=== PATIENT | female | born 1950 | race Caucasian/White ===

== ENCOUNTER 2024-01-12 15:52 | Outpatient (AMB) | payer MEDICARE, SELFPAY ==
--- NOTE | 2024-01-12 15:54 | MHC.OFFVIS ---
Intake Vital Signs 01/12/24 15:58 Height 5 ft Weight 112 lb 6 oz BMI 21.9 BP 118/70 Blood Pressure Location Lt brachial Position Sitting Pulse 52 Pulse Source Pulse Oximeter Pulse Oximetry (%) 94 Oxygen Delivery Method Room Air Intake Visit Reasons: Hypertension Hand Candy Molder Required: No Accompanied by: Self / Same As Patient Allergies No Known Allergies [No Known Allergies*] Allergy (Verified 01/12/24 16:00) HPI HPI Comments History of Present Illness Details I had the privilege of seeing Noelle in follow-up of her hypertension and mild CKD. She is in good health. She denies any headache, visual disturbances, chest pain, shortness of breath, proximal nocturnal dyspnea, orthopnea, pedal edema or orthostatic symptoms. She has no history of sleep apnea. Her renal functions have been stable. She does not take any nonsteroidal anti-inflammatories. She is not known to have any low serum potassium, high calcium or uncontrolled thyroid disorders. She maintains good hydration. [facility] Medical History (Updated 01/12/24 @ 16:03 by Charlotte Lloyd MA) CKD (chronic kidney disease) stage 2, GFR 60-89 ml/min Hypertension Surgical History (Updated 01/12/24 @ 16:03 by Charlotte Lloyd MA) History of salpingo-oophorectomy History of hernia repair H/O wrist surgery Family History (Updated 01/12/24 @ 16:04 by Charlotte Lloyd MA) Father Diabetes Heart disease Mother Heart disease Cancer Brother Cancer Diabetes Social History (Updated 01/12/24 @ 16:04 by Charlotte Lloyd MA) Alcohol intake: never Patient Tobacco Use Status: Former Tobacco user Use of substances other than those prescribed or required for medical reasons: No Physical Exam Vital Signs: Last Vital Signs Pulse 52 01/12/24 15:58 BP 118/70 01/12/24 15:58 Pulse Ox 94 01/12/24 15:58 Oxygen Delivery Method Room Air 01/12/24 15:58 BMI result Body Mass Index 21.9 Const General: comfortable and no acute distress Orientation/consciousness: patient oriented x3 HEENT Head: Yes normocephalic Mouth: Normal oral and palatal mucosa present Eyes EOM: EOMs intact bilaterally Neck Neck: Yes supple Resp Auscultation: clear to auscultation bilaterally Cardio Jugular venous distension: no JVD Rate: regular rate GI Palpation (GI): Soft to palpation Auscultation: normal bowel sounds General: Yes no CVA tenderness Back/Spine/Pelvis Back: no CVA tenderness Skin General skin exam: no rashes or lesions noted Neuro General: patient oriented x3 and moves all extremities Extrem General: Yes no pedal edema Assessment & Plan Assessment & Plan (1) CKD (chronic kidney disease) stage 2, GFR 60-89 ml/min: Code(s): N18.2 - Chronic kidney disease, stage 2 (mild) (2) Hypertension: Code(s): I10 - Essential (primary) hypertension Qualifiers: Hypertension type: primary hypertension Qualified Code(s): I10 - Essential (primary) hypertension Plan Noelle has 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 Her renal functions are currently stable. Her blood pressure is at goal. She is not a diabetic. She does not have any low serum potassium, high calcium or uncontrolled thyroid disorders. She avoids nonsteroidal anti-inflammatories. Her brother had ESRD from multiple myeloma. She maintains good hydration. Her blood pressure is at goal. I did not make any medication changes today. Follow-up lab work ordered. Answered all questions. Follow-up appointment given. Orders: Orders Calcium Today I10 - Essential (primary) hypertension, N18.2 - Chronic kidney disease, stage 2 (mild) Creatinine Today I10 - Essential (primary) hypertension, N18.2 - Chronic kidney disease, stage 2 (mild) Complete Blood Count Auto Diff Today I10 - Essential (primary) hypertension, N18.2 - Chronic kidney disease, stage 2 (mild) Parathyroid Hormone Intact Today I10 - Essential (primary) hypertension, N18.2 - Chronic kidney disease, stage 2 (mild) Vitamin D 25-OH Total Today I10 - Essential (primary) hypertension, N18.2 - Chronic kidney disease, stage 2 (mild) Electrolytes Today I10 - Essential (primary) hypertension, N18.2 - Chronic kidney disease, stage 2 (mild) Blood Urea Nitrogen Today I10 - Essential (primary) hypertension, N18.2 - Chronic kidney disease, stage 2 (mild) Immunofixation Pnl, Serum Today I10 - Essential (primary) hypertension, N18.2 - Chronic kidney disease, stage 2 (mild) Protein Creatinine Ratio, Ur Today I10 - Essential (primary) hypertension, N18.2 - Chronic kidney disease, stage 2 (mild) Medications: Refilled amlodipine 5 mg PO DAILY 90 tabs 5RF Coding Level of Care Code Est Pt Level 4 (20093) Diagnoses CKD (chronic kidney disease) stage 2, GFR 60-89 ml/min N18.2 Primary hypertension I10 Hypertension type: primary hypertension
[2024-01-12 15:58] VITALS: BP 118/70; PULSE 52; O2SAT 94; BMI 21.9
== END 2024-01-12 16:27 | disposition home or self-care (01) ==
PROVIDERS: PCP Internal Medicine; Visit Provider Internal Medicine Nephrology
DX: I12.9 Hypertensive chronic kidney disease with stage 1 through stage 4 chronic kidney disease, or unspecified chronic kidney disease (principal); N18.2 Chronic kidney disease, stage 2 (mild)
CPT/HCPCS: 99214

== ENCOUNTER → 2024-01-12 15:52 | Outpatient (BNVA) | payer MEDICARE, SELFPAY | PROVIDERS: PCP Internal Medicine; Visit Provider Internal Medicine Nephrology | DX: I12.9 Hypertensive chronic kidney disease with stage 1 through stage 4 chronic kidney disease, or unspecified chronic kidney disease (principal); N18.2 Chronic kidney disease, stage 2 (mild) | CPT/HCPCS: 99212 ==

== ENCOUNTER 2025-01-10 08:10 | Outpatient (REF) | payer MEDICARE, SELFPAY ==
[2025-01-10 08:26] LABS: MANUAL DIFF FLAG NO
--- OUTSIDE RECORDS SUMMARY | 2025-01-10 08:26 | XMS_ITS | Clinical Summary ---
Author Organization [facility] Address [address] [place] [address] Care Team Providers Care Vending Machine Refiller Name Role Phone Fabricio Cruz MD Primary Care Provider [phone] Allergies Active Allergy Reactions Criticality Noted Date Comments Amoxicillin-Pot Clavulanate Nausea Only 025 Medications alendronate (FOSAMAX) 70 mg tablet Take 1 tablet (70 mg total) by mouth once a week. 1 Active cholecalciferol (VITAMIN D-3) 25 mcg (1,000 unit) tablet Take 1 tablet (1,000 Units total) by mouth daily. Active LORazepam (ATIVAN) 0.5 mg tablet Take 1 tablet (0.5 mg total) by mouth every night at bedtime as needed. Active rosuvastatin 10 mg capsule, sprinkle Take by mouth. Active terbinafine (LamISIL) 250 mg tablet Take 1 tablet (250 mg total) by mouth daily. Active calcium carbonate (CALCIUM 500 ORAL) Take by mouth daily. Active escitalopram (LEXAPRO) 10 mg tablet Take 1 tablet (10 mg total) by mouth 1 (one) time each day. 4 Active buPROPion XL (WELLBUTRIN XL) 150 mg 24 hr tablet Take 1 tablet (150 mg total) by mouth 1 (one) time each day in the morning. 4 Active amLODIPine (NORVASC) 2.5 mg tablet Take 1 tablet (2.5 mg total) by mouth 1 (one) time each day. 5 Active levothyroxine (SYNTHROID, LEVOTHROID) 50 mcg tablet Take 1 tablet (50 mcg total) by mouth 1 (one) time each day. 5 Active amLODIPine (NORVASC) 5 mg tablet Take 1 tablet (5 mg total) by mouth daily. 12/24/19 25 Discontinu ed(Dose adjustment ) escitalopram (LEXAPRO) 20 mg tablet Take 1 tablet (20 mg total) by mouth daily. 12/24/19 25 Discontinu ed(Dose adjustment ) levothyroxine (SYNTHROID, LEVOTHROID) 75 mcg tablet Take 1 tablet (75 mcg total) by mouth every morning with breakfast. 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 Encounters Date Type Department Care Team Description 01/02/2025 Telephone Gastroenterology - [address] [phone] Danae Acosta [place] 12/30/2024 9:51 AM EDT Anesthesia Event [facility] Endoscopy [address] [place] [address] Lupillo Davila MD 12/30/2024 8:26 AM EDT - 12/30/2024 11:59 PM EDT Hospital Encounter [facility] Endoscopy [address] [place] [address] Marybel Aden MD Weiss, Ashley, CRNA Colon cancer screening Discharge Disposition: Home or Self Care 10/31/2024 Telephone Gastroenterology - [address] [phone] Marybel Aden MD from Last 3 Months Immunizations Name Administration Dates Next Due [employer] SARS-CoV-2 COVID -19, vector-nr, rS-Ad26, preservative free 12/15/2020 Surgical History Surgery Date Site/Laterality Comments OOPHORECTOMY PROCEDURE:OOPHORECTOMY COLONOSCOPY PROCEDURE:COLONOSCOPY OTHER SURGICAL HISTORY PROCEDURE:DIAPHRAGMATIC HERNIA REPAIR Medical History Medical History Date Comments Bradycardia DX:Bradycardia Disease of thyroid gland DX:Dise ase of thyroid gland Depression DX:Depression Colon cancer (CMS/HCC) DX:Colon cancer (HCC);COMMENT:at 68 - had surgery (polyp) Ovarian cancer (CMS/HCC) DX:Ovar stephan cancer (HCC);COMMENT:Dr Beyer ( surgery only ) - follows Dr Mac (no XRT or chemo) Family History Medical History Relation Name Comments Multiple myeloma Brother 1 Heart attack Father Skin cancer Father Heart attack Mother Lung cancer Mother Diabetes Son Relation Name Status Comments Brother 1 Alive diagnosed at 51 yo Brother 2 Alive Father Mother Son Diabetes at age 49 Social History Tobacco Use Types Packs/Day Years Used Date Smoking Tobacco: Former Cigarettes Q uit: 10/05/1990 Smokeless Tobacco: Never Alcohol Use Standard Drinks/Week Comments No 0 (1 standard drink = 0.6 oz pur e alcohol) Interpersonal Safety Answer Date Record ed Physical Abuse 12/30/2024 Verbal Abuse 12/30/2024 Comments No Sex and Gender Information Value Date Recorded Sex Assigned at Female 12/29/2024 11:28 AM EDT Legal Sex Female 4:43 PM EST Gender Identity Female 12/29/2024 11:28 AM EDT Sexual Orientation Straight 12/29/2024 11 :28 AM EDT Obstetrics History Last Filed Vital Signs Vital Sign Reading Time Taken Comments Blood Pressure 116/72 12/30/2024 10:34 AM EDT Pulse 51 12/30/2024 10:34 AM EDT Temperature 36.5 ??C (97.7 ??F) 12/30/2024 10:14 AM E DT Respiratory Rate 17 12/30/2024 10:34 AM EDT Oxygen Saturation 98% 12/30/2024 10:34 AM EDT Inhaled Oxygen Concentration - - Weight 49.9 kg (110 lb) 12/30/2024 9:36 AM EDT Height 154.9 cm (5' 1 ) 12/30/2024 9:36 AM EDT Body Mass Index 20.78 12/30/2024 9:36 AM EDT Plan of Treatment Upcoming Encounters Date Type Department Care Team (Late st Contact Info) Description 01/16/2025 3:45 PM EDT Office Visit [facility] Hematology Oncology [address] [place] [phone] Camden Rodriges MD [address] [place] [address] Health Maintenance Due Date Last Done Comments Breast Cancer Screening 1950 DTaP,Tdap,and Td Vaccines (1 - Tdap) 1970 Zoster Vaccines (1 of 2) 1970 Pneumococcal Vaccine: 50+ Years (2 of 2 - PPSV23) 10/20/2016 08/25/2016 Depression Screening 09/13/2022 Hepatitis C Screening 09/13/2022 Medicare Annual Wellness Visit 09/13/2022 Social Influencers of Health Screening 09/13/2022 COVID-19 Vaccine ( season) 2024 08/09/2022, 08/10/2021, 12/15/2020 Hypertension/CHF/CAD Annual BMP Blood Test 12/30/2024 Falls Risk Assessment 12/30/2025 12/30/2024 RSV Immunization Adult Patients (1 - 1-dose 75+ series) 2026 Cholesterol Screening (Lipid Panel) 07/30/2027 07/30/2022, 07/30/2022, 07/30/2002 Osteoporosis Screening (Bone Density Screening) 08/01/2034 08/01/2024, 08/04/2022, 07/09/2020, Additional history exists Colorectal Cancer Screening: Colonoscopy 12/30/2034 12/30/2024, 11/01/2024 Influenza Vaccine Completed 07/20/2024, , 07/11/2022, Additional history exists HIB Vaccines Aged Out No longer eligi ble based on patient's age to complete this topic HPV Vaccines Aged Out No longer eligi ble based on patient's age to complete this topic Hepatitis A Vaccines Aged Out No long er eligible based on patient's age to complete this topic Hepatitis B Vaccines Aged Out No long er eligible based on patient's age to complete this topic IPV Vaccines Aged Out No longer eligi ble based on patient's age to complete this topic MMR Vaccines Aged Out No longer eligi ble based on patient's age to complete this topic Meningococcal ACWY Vaccine Aged Out N o longer eligible based on patient's age to complete this topic Meningococcal B Vaccine Aged Out No l onger eligible based on patient's age to complete this topic RSV Immunization Patients Under 20 months Aged Out No longer eligible based on patient's age to complete this topic Varicella Vaccines Aged Out No longer eligible based on patient's age to complete this topic Procedures Procedure Name Priority Date/Time Associated Diagnosis Comments COLONOSCOPY Routine 12/30/2024 10:13 AM EDT Colon cancer screening TISSUE EXAM Routine 12/30/2024 10:07 AM EDT Colon cancer screening COLONOSCOPY Routine 11/01/2024 2:52 PM EST [facility] DEXA AXIAL SKELETON Routine 08/01/2024 8:26 AM EDT Other specified disorders of bone density and structure, other site LIPID PANEL Routine 07/30/2022 from Last 3 Months or Most Recently Relevant to Health Maintenance Results * COLONOSCOPY Anesthesia - MAC; [facility] ENDOSCOPY (12/30/2024 10:13 AM EDT) Only the most recent of2 resultswithin the time period is included. Anatomical Region Laterality Modality Other 12/30/2024 9:54 AM EDT Impressions 12/30/2024 10:14 AM EDT - The examined portion of the ileum was normal. ? - One 2 mm polyp in the transverse colon, removed with ? a cold snare. Resected and retrieved. ? - Internal hemorrhoids. Recommendation: ?- Await pathology results. ? - Repeat colonoscopy for surveillance based on ? pathology results. Narrative 12/30/2024 10:14 AM EDT [facility] GI Patient Name: Monica Pack Procedure Date: 12/30/2024 9:54 AM Date of : 1950 Age: 74 Gender: Female Note Status: Finalized Attending MD: Marybel Aden MD, Procedure Date No Time: 12/30/2024 Procedure: ? Colonoscopy Indications: ? High risk colon cancer surveillance: Personal history ? of colon cancer Providers: ? Marybel Aden MD Referring MD: ?Fabricio Cruz MD Medicines: ? Propofol per Anesthesia Complications: ? No immediate complications. Estimated Blood Loss: ? Estimated blood loss: none. Procedure: ? Pre-Anesthesia Assessment: ? - ASA Grade Assessment: II - A patient with mild ? systemic disease. ? After I obtained informed consent, the scope was ? passed under direct vision. Throughout the procedure, ? the patient's blood pressure, pulse, and oxygen ? saturations were monitored continuously.The Olympus ? Pediatric Colonoscope was introduced through the anus ? and advanced to the terminal ileum. The colonoscopy ? was performed without difficulty. The patient ? tolerated the procedure well. The quality of the bowel ? preparation was adequate. Findings: ?The perianal and digital rectal examinations were ? normal. ? The terminal ileum appeared normal. ? A 2 mm polyp was found in the transverse colon. The ? polyp was sessile. The polyp was removed with a cold ? snare. Resection and retrieval were complete. ? Internal hemorrhoids were found during retroflexion. ? The hemorrhoids were Grade II (internal hemorrhoids ? that prolapse but reduce spontaneously). Procedure Code(s): ? --- Professional --- ? 65271, Colonoscopy, flexible; with removal of ? tumor(s), polyp(s), or other lesion(s) by snare ? technique Diagnosis Code(s): ? --- Professional --- ? 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 D12.3, Benign neoplasm of transverse colon (hepatic ? flexure or splenic flexure) CPT copyright 2020 [employer]. All rights reserved. The codes documented in this report are preliminary and upon fire suppression captain review may be revised to meet current compliance requirements. Marybel Aden MD 12/30/2024 10:14:42 AM This report has been signed electronically.Marybel Aden MD Number of Addenda: 0 Note Initiated On: 12/30/2024 9:54 AM Scope In: Scope Out: ? Endoscopy Department at [facility] - [address] [place] [address], ? [place] [address] Procedure Note Marybel Aden MD - 12/30/2024 [facility] GI Patient Name: Monica Pack Procedure Date: 12/30/2024 9:54 AM Date of : 1950 Age: 74 Gender: Female Note Status: Finalized Attending MD: Marybel Aden MD, Procedure Date No Time: 12/30/2024 Procedure: Colonoscopy Indications: High risk colon cancer surveillance: Personalhistory of colon cancer Providers: Marybel Aden MD Referring MD: Fabricio Cruz MD Medicines: Propofol per Anesthesia Complications: No immediate complications. Estimated Blood Loss: Estimated blood loss: none. Procedure: Pre-Anesthesia Assessment: - ASA Grade Assessment: II - A patient with mild systemic disease. After I obtained informed consent, the scope was passed under direct vision. Throughout theprocedure, the patient's blood pressure, pulse, and oxygen saturations were monitored continuously.The Olympus Pediatric Colonoscope was introduced through theanus and advanced to the terminal ileum. The colonoscopy was performed without difficulty. The patient tolerated the procedure well. The quality of thebowel preparation was adequate. Findings: The perianal and digital rectal examinations were normal. The terminal ileum appeared normal. A 2 mm polyp was found in the transverse colon. The polyp was sessile. The polyp was removed with acold snare. Resection and retrieval were complete. Internal hemorrhoids were found duringretroflexion. The hemorrhoids were Grade II (internal hemorrhoids that prolapse but reduce spontaneously). Procedure Code(s): --- Professional --- 49206, Colonoscopy, flexible; with removal of tumor(s), polyp(s), or other lesion(s) by snare technique Diagnosis Code(s): --- Professional --- Z85.038, Personal history of other malignantneoplasm of large intestine D12.3, Benign neoplasm of transverse colon (hepatic flexure or splenic flexure) CPT copyright 2020 [employer]. All rights reserved. The codes documented in this report are preliminary and upon fire suppression captain reviewmay be revised to meet current compliance requirements. Marybel Aden MD 12/30/2024 10:14:42 AM This report has been signed electronically.Marybel Aden MD Number of Addenda: 0 Note Initiated On: 12/30/2024 9:54 AM Scope In: Scope Out: Endoscopy Department at [facility] - [address] [place] [phone] IMPRESSION: - The examined portion of the ileum was normal. - One 2 mm polyp in the transverse colon, removedwith a cold snare. Resected and retrieved. - Internal hemorrhoids. Recommendation: - Await pathology results. - Repeat colonoscopy for surveillance based on pathology results. us Marybel Aden MD GI~PROCEDURE ORDERABLES Final Result * Tissue exam (12/30/2024 10:07 AM EDT) Final Diagnosis Transverse Colon, polyp: Tubular adenoma. 01/02/2025 11:05 AM EDT [facility] Gross Description A. Large Intestine, Transverse Colon, polyp: Labeled transvers colon . Received in formalin, is an approximately 0.5 cm in greatest diameter soft to rubbery, pickard-pink tissue fragment, which is inked green at the base, wrapped in paper and submitted in toto in one cassette, one piece, multiple levels. dvb/DG 01/02/2025 11:[address] [facility] Disclaimer Unless otherwise specified, all tissue is 10% NB formalin fixed and paraffin embedded. 01/02/2025 11:[address] [facility] Tissue Transverse colon structure / Unknown 12/30/2024 10:07 AM EDT 12/30/2024 12:42 PM EDT us Marybel Aden MD LAB PATHOLOGY ORDERABLES Final Result [facility] [address] [place] [address], * [facility] DEXA AXIAL SKELETON (08/01/2024 8:26 AM EDT) Anatomical Region Laterality Modality Mammography 08/01/2024 7:26 AM EDT Narrative 08/01/2024 8:26 AM EDT [facility] Diagnostic Imaging Department [address] [place] [address] Patient: ??MONICA PACK ?/Age/Sex: 1950 - Unit#: ??[id number] ? Location/Status: ??SPDIMAM/REG CLI ? Mnemonic/Ordering Site: ??MAMDEXAAX/SPMAM Ordering Physician: ??JUS GOODEN MD [place] Dexa Axial Skeleton - 08/01/24801 Report Status:Signed HISTORY: ??The patient is a 74-year-old postmenopausal female with clinical concern for metabolic bone disease. FINDINGS: ??Dual energy x-ray absorptiometry of the lumbar spine and femurs is performed. The mean bone mineral density at L1-L4 is 0.925 gm/cm2 which is 78% of that of young normals and 100% of that of age matched controls. This yields a T-score of -2.1 and a Z-score of 0.0 which is diagnostic of osteopenia. The mean bone mineral density of the femurs bilaterally is 0.782 gm/cm2 which is 78% of that of young normals and 102% of that of age matched controls. ??This yields a T-score of -1.8 and a Z-score of 0.1 which is diagnostic of osteopenia. The T-score of the right femoral neck is -2.1 and that of the left femoral neck is -2.2 which is diagnostic of osteopenia. IMPRESSION: 1. Osteopenia. 2. FRAX analysis yields a 10-year probability of major osteoporotic fracture of 19.4% and a 10-year probability of hip fracture of 4.7%. Code 41992 Dictating Physician: ??CIERRA MARTÍNEZ MD Electronically Signed by: ??CIERRA MARTÍNEZ MD Dic Date/Time: ??08/01/24824 Sign date/Time: ??08/01/24825 Procedure Note Cierra Martínez MD - 08/06/2024 [facility] Diagnostic Imaging Department [address] [place] [address] Patient: MONICA PACK /Age/Sex: 1950 - 74 - F Unit#: [id number] Location/Status: SPDIMAM/REG CLI [facility] Ordering Physician: JUS GOODEN MD [facility] Dexa Axial Skeleton - 08/01/24801 Report Status:Signed HISTORY: The patient is a 74-year-old postmenopausal female withclinical concern for metabolic bone disease. FINDINGS: Dual energy x-ray absorptiometry of the lumbar spine and femursis performed. The mean bone mineral density at L1-L4 is 0.925 gm/cm2 which is78% of that of young normals and 100% of that of age matched controls. Thisyields a T-score of -2.1 and a Z-score of 0.0 which is diagnostic of osteopenia. The mean bone mineral density of the femurs bilaterally is 0.782 gm/aq2fqvsh is 78% of that of young normals and 102% of that of age matched controls.This yields a T-score of -1.8 and a Z-score of 0.1 which is diagnostic ofosteopenia. The T-score of the right femoral neck is -2.1 and that of the left femoralneck is -2.2 which is diagnostic of osteopenia. IMPRESSION: 1. Osteopenia. 2. FRAX analysis yields a 10-year probability of major osteoporoticfracture of 19.4% and a 10-year probability of hip fracture of 4.7%. Code 11519 Dictating Physician: CIERRA MARTÍNEZ MD Electronically Signed by: CIERRA MARTÍNEZ MD Dic Date/Time: 08/01/24824 Sign date/Time: 08/01/24825 us Jus Gooden MD IMG BI PROCEDURES Fi nal Result * Lipid panel (07/30/2022) LDL/HDL Ratio 0 Comment:no interpretation Triglycerides 0 mg/dL Comment:no interpretation Cholesterol 0 mg/dL Comment:no interpretation HDL 0 mg/dL Comment:no interpretation Blood Venous blood specimen / Unknown us Historical Provider LAB BLOOD ORDERABLES Shayy l Result from Last 3 Months or Most Recently Relevant to Health Maintenance Insurance MEDICARE [facility] Advance Directives Documents on File Type Date Recorded Patient Cleaning Specialist Expl anation Health Care Decision (hx) 08/10/2024 3:59 PM Health Care Decision (hx) 07/20/2024 1:35 PM Health Care Decision (hx) 07/20/2024 11:46 AM Health Care Decision (hx) 07/20/2024 11:46 AM Care Teams Vending Machine Refiller Relationship Specialty Start Date End Date Fabricio Cruz MD [address] [place] [address] PCP - General Internal Medicine 12/29/24
--- OUTSIDE RECORDS SUMMARY | 2025-01-10 08:26 | XMS_ITS | Continuity of Care Document ---
Author Organization [facility] [address] [place] [address] Phone [phone] Care Team Providers Care Purchasing/Receiving Name Role Phone Fabricio Cruz M.D. Care Team Information Recei luann [phone] Problems Active Problems Provider Date Hypothyroidism Mariana castillo M.D. Onset: 10/15/2022 Multinodular goiter Mariana castillo M.D. Onset: 10/15/2022 Osteopenia Mariana castillo M.D. Onset: 10/15/2022 Hypercholesterolemia Mariana high M.D. Onset: 10/15/2022 Depressive disorder Mariana castillo M.D. Onset: 10/15/2022 Monoclonal gammopathy of unc ertain significance Mariana Fournier M.D. Onset: 02/25/2023 Benign paroxysmal positional vertigo Lupe Fournier M.D. Onset: 02/25/2023 Carcinoma of colon Mariana castillo M.D. Onset: 02/25/2023 Kidney stone Mraiana castillo M.D. Onset: 02/25/2023 Bradycardia Mariana castillo M.D. Onset: 02/25/2023 Neoplasm of ovary Mariana castillo M.D. Onset: 02/25/2023 Social History Type Date Description Comments Sex Unknown Marital Status Legal Status: Lives With Alone Occupation paraprofessional-school Work Status Full-Time Employment Tobacco Use Start: Unknown End: Unknown Quit 1990 Smoking Status Reviewed: 02/25/23 Quit 1991 ETOH Use Denies alcohol use Allergies and adverse reactions Description No Known Drug Allergies Medications Active Medications SIG Qnty Indications Order ing Provider Date Amlodipine Besylate2.5mg Tablets Take One Tablet By Mouth Every Day. Mariana Fournier M.D. 03/09/2024 Levothyroxine [id number] Tablets Take One Tablet By Mouth Every Day 90tabs Mariana Fournier M.D. 02/28/2023 Rosuvastatin Lnlrjtv93al Tablets Take 1 Tablet By Mouth Once Daily Fabricio Cruz M.D. Alendronate Ygautl01sr Tablets Take 1 Tablet By Mouth Once Weekly Mariana Fournier M.D. Lorazepam0.5mg Tablets Take 1 Tablet By Mouth Once Daily as Needed For Anxiety Unknown Calcium 500/Vitamin D500-3.125mg-mcg Tablets 1 by mouth twice a day Mariana Fournier M.D. Vitamin S466dqh (1000 Ut) Capsules 1 by mouth every day 100caps Mariana Fournier M.D. Bupropion Hydrochloride ER (XL)150mg Tablets ER 24HR Take One Tablet By Mouth Every Morning Unknown Escitalopram Yqmosny33ih Tablets Take One Tablet By Mouth Every Day Unknown Vital Signs Date Vital Result Comment 09/14/2024 8:13am BP Systolic 110 mmHg BP Diastolic 62 mmHg Heart Rate 64 /min Height 60 inches 5'0 Weight 111.38 lb BMI (Body Mass Index) 21.7 kg/m2 Results Test Acquired Date Facility Test Result H/L Range N ote TSH With Reflex To FT4 09/04/2023 [facility] TSH With Reflex To FT4 1.81 uIU/mL (0.4-4.2) 25Oh Vitamin D 09/04/2023 [facility] 25Oh Vitamin D 62.3 NG/ML High (20-50) TSH With Reflex To FT4 05/04/2023 [facility] TSH With Reflex To FT4 2.78 uIU/mL (0.4-4.2) TSH With Reflex To FT4 02/28/2023 [facility] TSH With Reflex To FT4 <pending> TSH With Reflex To FT4 02/25/2023 [facility] TSH With Reflex To FT4 0.32 uIU/mL Low (0.4-4.2) Free T4 02/25/2023 [facility] Free T4 1.76 ng/dL (0.70-1.80 ) Procedures Date Code Description Status 09/04/2023 75281 Collection Of Venous Blood B y Venipuncture Completed 02/25/2023 85703 Collection Of Venous Blood B y Venipuncture Completed Medical Devices Description No Information Available Encounters Type Date Location Provider Dx Diagnosis Office Visit 09/14/2024 8:15a Main Office Mariana Fournier M.D. M81.0 Age-related osteoporosis w/o current pathological fracture E04.2 Nontoxic multinodula r goiter E03.9 Hypothyroidism, unsp ecified Assessments Date Code Description Provider 09/14/2024 M81.0 Age-related oste oporosis without current pathological fracture Mariana Fournier M.D. 09/14/2024 E04.2 Nontoxic multinodular goiter Mariana Fournier M.D. 09/14/2024 E03.9 Hypothyroidism, unspecified Mariana Fournier M.D. Plan of Treatment Future Appointment(s):* 03/15/2025 8:30 am - Mariana Fournier M.D. at Main Office 03/09/2024 - Mariana Fournier M.D.* M81.0 Age-related osteoporosis without current pathological fracture * E04.2 Nontoxic multinodular goiter * E03.9 Hypothyroidism, unspecified * * New Xrays:* Dexa Bone Density Study Axial Skeleton, Ordered: 03/09/24 Functional Status Description No Information Available Mental Status Description No Information Available Referrals Description No Information Available
--- OUTSIDE RECORDS SUMMARY | 2025-01-10 08:26 | XMS_ITS | Clinical Summary ---
Author Organization [facility] Address [address] [place] [address] Care Team Providers Care Client Resolution Specialist Name Role Phone Fabricio Cruz MD Primary Care Provider Allergies No known active allergies Medications Medication Sig Dispensed Refills Start Date End Date Status escitalopram (LEXAPRO) 20 MG tablet Take 1 tablet (20 mg total) by mouth daily. 0 Active levothyroxine (SYNTHROID, LEVOXYL) tablet 75 mcgIndications:MON-FRI ONLY Take 1 tablet (75 mcg total) by mouth every morning with breakfast. 0 Active LORazepam (ATIVAN) 0.5 MG tablet Take 1 tablet (0.5 mg total) by mouth every night at bedtime as needed. 0 Active vitamin D3 (VITAMIN D3) 25 MCG (1000 UT) tablet Take 1 tablet (1,000 Units total) by mouth daily. 0 Active Calcium Carbonate (CALCIUM 500 PO) Take by mouth daily. 0 Active alendronate (FOSAMAX) tablet 70 mg Take 1 tablet (70 mg total) by mouth once a week. 0 03/29/2021 Active Rosuvastatin Calcium 10 MG CPSP Take by mouth. 0 Active terbinafine (LamiSIL) 250 MG tablet Take 1 tablet (250 mg total) by mouth daily. 0 Active amLODIPine (NORVASC) tablet 5 mg Take 1 tablet (5 mg total) by mouth daily. 0 Active Active Problems Problem Noted Date Diagnosed Date Night sweats 03/31/2022 Weight loss 03/31/2022 MGUS (monoclonal gammopathy of unknown significa nce) 04/23/2020 High vitamin D level 04/23/2020 Anxiety 04/23/2020 Family history of multiple myeloma 04/23/2020 Family History Medical History Relation Name Comments Multiple myeloma Brother 1 Heart attack Father Skin cancer Father Heart attack Mother Lung cancer Mother Diabetes Son Relation Name Status Comments Brother 1 Alive diagnosed at 51 yo Brother 2 Alive Father Mother Son Diabetes at age 49 Social History Tobacco Use Types Packs/Day Years Used Date Smoking Tobacco: Former Cigarettes 1 25 Q uit: 1990 Smokeless Tobacco: Never Alcohol Use Standard Drinks/Week Comments No 0 (1 standard drink = 0.6 oz pur e alcohol) Sex and Gender Information Value Date Recorded Sex Assigned at Not on file Gender Identity Not on file Sexual Orientation Not on file Job Start Date Occupation Industry Not on file Not on file Not on file Last Filed Vital Signs Vital Sign Reading Time Taken Comments Blood Pressure 135/54 01/14/2023 4:03 PM EDT Pulse 50 01/14/2023 4:03 PM EDT Temperature 37.1 ??C (98.8 ??F) 01/14/2023 4:03 PM ED T Respiratory Rate - - Oxygen Saturation 96% 01/14/2023 4:03 PM EDT Inhaled Oxygen Concentration - - Weight 54.3 kg (119 lb 9.6 oz) 01/14/2023 4:03 P M EDT Height 152.4 cm (5') 01/14/2023 4:03 PM EDT Body Mass Index 23.36 01/14/2023 4:03 PM EDT Plan of Treatment Health Maintenance Due Date Last Done Comments Hepatitis C Screening 1950 Pneumococcal Vaccine (1 of 2 - PCV) 1957 Depression Screening 1963 Preventative Health Evaluation 1969 DTap / Tdap / Td (1 - Tdap) 1970 Shingrix-Zoster Vaccine (1 of 2) 1970 Colon Cancer Screening (Colonoscopy) 02/03/1996 Breast Cancer Screening (Mammogram) 2001 Fall Risk Assessment 02/03/2016 Osteoporosis Screening (DEXA Scan) 02/03/2016 COVID-19 Vaccine (2 - Jansse n risk series) 01/12/2021 12/15/2020 Influenza Vaccine (#1) 2024 07/11/2022 RSV Adult > 60+ Yrs or Pregn ant (1 - 1-dose 75+ series) 2026 Hepatitis B Vaccines Aged Out No long er eligible based on patient's age to complete this topic RSV Ped < 20 months Aged Out No longe r eligible based on patient's age to complete this topic Care Teams Client Resolution Specialist Relationship Specialty Start Date End Date Fabricio Cruz MD [address] [place] [address] PCP - General Internal Medicine 03/26/20
--- OUTSIDE RECORDS SUMMARY | 2025-01-10 08:26 | XMS_ITS | Clinical Summary ---
Author Organization [facility] Address [address] [address] Phone Care Team Providers Care Loading Machine Operator Name Role Phone Fabricio Cruz MD Primary Care Provider Allergies No known active allergies Medications alendronate (FOSAMAX) 70 MG tablet Take 1 tablet by mouth 1 (one) time per week 06/06/2021 Active escitalopram (LEXAPRO) 20 MG tablet Take 20 mg by mouth 1 (one) time each day Active levothyroxine (SYNTHROID, LEVOTHROID) 75 MCG tablet Take 75 mcg by mouth 1 (one) time each day Active cholecalciferol (VITAMIN D-3) 25 MCG (1000 UT) tablet Take 1,000 Units by mouth 1 (one) time each day Active LORazepam (ATIVAN) 0.5 MG tablet Take 0.5 mg by mouth if needed for anxiety Active rosuvastatin (CRESTOR) 10 MG tablet Take 10 mg by mouth 1 (one) time each day 08/13/2022 Active amLODIPine (NORVASC) 5 MG tablet Take 1 tablet (5 mg total) by mouth 1 (one) time each day 90 tablet 3 10/30/2022 Active terbinafine (LamISIL) 250 MG tablet Take 1 tablet by mouth 1 (one) time each day 01/03/2023 Active calcium carbonate (TUMS) 500 MG chewable tablet Chew 1 tablet 1 (one) time each day Active Active Problems Problem Noted Date Diagnosed Date Hypertension 10/30/2022 Hypercholesterolemia 10/15/2022 Non-toxic multinodular goiter 10/15/2022 Osteopenia 10/15/2022 Night sweats 03/31/2022 Weight loss 03/31/2022 Essential (primary) hypertension 07/09/2021 Labile hypertension due to being in a clinical e nvironment 07/09/2021 Resolved Problems Problem Noted Date Diagnosed Date Resolved Date Depressive disorder 10/31/2021 10/31/19 22 Hypothyroidism 10/31/2021 10/31/2021 Malignant neoplasm of colon 10/31/2021 10/31/2021 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 10/31/2021 10/31/2021 Closed Doll's fracture 07/09/202102/2021 Anxiety 04/23/2020 07/09/2021 Family history of multiple myeloma 04/23/2020 07/09/2021 Hypervitaminosis D 04/23/2020 Monoclonal gammopathy of unc ertain significance 04/23/2020 07/09/2021 Immunizations Name Administration Dates Next Due Fadumo SARS-COV-2 12/15/2020 Family History Medical History Relation Comments Cancer Brother 1 Diabetes Brother 1 Heart disease Brother 2 Diabetes Father Heart disease Father Dementia Maternal Grandmother Cancer Mother Heart disease Mother Hypertension Mother Diabetes Paternal Grandfather Relation Status Comments Brother 1 Brother 2 Father Maternal Grandmother Mother Paternal Grandfather Social History Tobacco Use Types Packs/Day Years Used Date Smoking Tobacco: Former Cigarettes 1 25 0 10/05/1966 - 10/05/1990 Smokeless Tobacco: Never Alcohol Use Standard Drinks/Week Comments Never 0 (1 standard drink = 0.6 oz pur e alcohol) Comments Unknown Sex and Gender Information Value Date Recorded Sex Assigned at Not on file Legal Sex Female 2:04 PM EDT Gender Identity Not on file Sexual Orientation Not on file Last Filed Vital Signs Vital Sign Reading Time Taken Comments Blood Pressure 120/80 01/13/2023 2:48 PM EDT Pulse 50 01/13/2023 2:48 PM EDT Temperature - - Respiratory Rate - - Oxygen Saturation 97% 10/31/2021 4:22 PM EST Inhaled Oxygen Concentration - - Weight 54.2 kg (119 lb 6.4 oz) 01/13/2023 2:48 P M EDT Height - - Body Mass Index - - Plan of Treatment Health Maintenance Due Date Last Done Comments Breast Cancer Screening 1950 Pneumococcal Vaccine: 65+ Ye ars (1 of 2 - PCV) 1957 Colorectal Cancer Screening: Annual FOBT 02/03/2000 Colorectal Cancer Screening: Colonoscopy 02/03/2000 Colorectal Cancer Screening: Sigmoidoscopy 02/03/2000 Influenza Vaccine (Season Ended) 2025 Hepatitis B Vaccine Aged Out No longe r eligible based on patient's age to complete this topic Insurance MEDICARE [facility] MEDICARE [facility] Care Teams Loading Machine Operator Relationship Specialty Start Date End Date Fabricio Cruz MD [address] [place] [address] PCP - General Internal Medicine 03/27/21
[2025-01-10 09:03] LABS: Eosinophils Absolute Auto 0.1 X10*3/uL (0.0-0.4); Eosinophils Percent Auto 2.6 % (0-4); Hematocrit 40.9 % (37.0-47.0); Hemoglobin 13.4 g/dl (12.0-16.0); Imm Gran Abs Auto 0.01 X10*3/uL (0.00-0.03); Imm Gran Pct Auto 0.3 % (0.0-0.4); Lymphocytes Absolute Auto 1.1 X10*3/uL (1.2-4.9); Lymphocytes Percent Auto 27.8 % (20-40); Mean Corpuscular HGB Conc 32.8 g/dl (31.0-35.0); Mean Corpuscular Hemoglobin 29.8 pg (27.0-33.0); Mean Corpuscular Volume 91.1 fL (80.0-98.0); Mean Platelet Volume 9.1 fL (9.4-12.3); Monocytes Absolute Auto 0.3 X10*3/uL (0.1-1.2); Monocytes Percent Auto 8.1 % (2-11); Neutrophils Absolute Auto 2.3 x10*3/uL (2.0-8.3); Neutrophils Percent Auto 60.2 % (45-73); Platelet Count 163 X10*3/uL (160-400); Red Blood Count 4.49 X10*6/uL (4.20-5.50); White Blood Count 3.8 X10*3/uL (4.8-10.8)
[2025-01-10 09:53] LABS: Creatinine Urine 139.65 mg/dL; Protein/Creatinine Ratio, Ur 0.06 (<0.2); Total Protein Urine Random 9 mg/dL (<12)
[2025-01-10 10:03] LABS: Anion Gap 10 (12-20); Blood Urea Nitrogen 16 mg/dL (9-16); Calcium 9.2 mg/dL (8.4-10.2); Carbon Dioxide 26 mmol/L (22-29); Chloride 111 mmol/L (96-108); Estimated Glomerular Filt Rate 56; Potassium 3.9 mmol/L (3.3-5.1); Sodium 143 mmol/L (135-145)
[2025-01-10 10:12] LABS: Vitamin D 25-OH Total 55.7 ng/mL (>30)
[2025-01-10 10:41] LABS: Parathyroid Hormone Intact 110.5 pg/mL (8.7-77.1)
[2025-01-11 14:49] LABS: IgA 120 mg/dL (70-320); IgG 751 mg/dL (600-1540); IgM 31 mg/dL (50-300)
== END 2025-01-10 08:11 | disposition home or self-care (01) ==
LOC: HO.LAB 08:10
PROVIDERS: PCP Internal Medicine; Visit Provider Internal Medicine Nephrology
DX: I10 Essential (primary) hypertension (principal); N18.2 Chronic kidney disease, stage 2 (mild)
CPT/HCPCS: 36415; 80051; 82306; 82310; 82565; 82570; 82784; 83970; 84156; 84520; 85025; 86334

== ENCOUNTER 2025-01-11 15:20 | Outpatient (AMB) | payer MEDICARE, SELFPAY ==
--- NOTE | 2025-01-11 15:28 | HO.NEPHOV ---
Vital Signs 01/11/25 15:34 Height 5 ft Weight 115 lb 8 oz BMI 22.6 BP 110/60 Blood Pressure Location Rt brachial Position Sitting Pulse 54 Pulse Source Pulse Oximeter Pulse Oximetry (%) 94 Oxygen Delivery Method Room Air Intake Visit Reasons: 1 Year F/U-Conf Packing Line Worker Required: No Accompanied by: Self / Same As Patient Allergies Amoxicillin and Clavulanate Adverse Reaction (Uncoded 01/11/25 15:34) Nausea HPI Comments Details: Noelle was seen in follow-up of her hypertension and mild CKD. She is in good health. She denies any headache, visual disturbances, chest pain, shortness of breath, proximal nocturnal dyspnea, orthopnea, pedal edema or orthostatic symptoms. She has no history of sleep apnea. Her renal functions have been stable. She does not take any nonsteroidal anti-inflammatories. She is not known to have any low serum potassium, high calcium or uncontrolled thyroid disorders. She maintains good hydration. She has no paraprotein. [facility] Medical History (Updated 01/12/24 @ 16:03 by Charlotte Lloyd MA) CKD (chronic kidney disease) stage 2, GFR 60-89 ml/min Hypertension Surgical History History of salpingo-oophorectomy History of hernia repair H/O wrist surgery Family History Father Diabetes Heart disease Mother Heart disease Cancer Brother Cancer Diabetes Social History Alcohol intake: never Patient Tobacco Use Status: Former Tobacco user Review of Systems Const All systems reviewed & are unremarkable except as noted in HPI and below Physical Exam Vital Signs: Last Vital Signs Pulse 54 01/11/25 15:34 BP 110/60 01/11/25 15:34 Pulse Ox 94 01/11/25 15:34 Oxygen Delivery Method Room Air 01/11/25 15:34 BMI result Body Mass Index 22.6 Const General: comfortable and no acute distress Orientation/consciousness: patient oriented x3 HEENT Head: Yes normocephalic Mouth: Normal oral and palatal mucosa present Eyes EOM: EOMs intact bilaterally Neck Neck: Yes supple Resp Auscultation: clear to auscultation bilaterally Cardio Jugular venous distension: no JVD Rate: regular rate GI Palpation (GI): Soft to palpation Auscultation: normal bowel sounds General: Yes no CVA tenderness Back/Spine/Pelvis Back: no CVA tenderness Skin General skin exam: no rashes or lesions noted Neuro General: patient oriented x3 and moves all extremities Extrem General: Yes no pedal edema Results Reviewed Nephrology Results: Hgb 13.4 g/dl (12.0-16.0) 01/10/25 WBC 3.8 X10*3/uL (4.8-10.8) L 01/10/25 Plt Count 163 X10*3/uL (160-400) 01/10/25 Sodium 143 mmol/L (135-145) 01/10/25 Potassium 3.9 mmol/L (3.3-5.1) 01/10/25 Chloride 111 mmol/L (96-108) H 01/10/25 Carbon Dioxide 26 mmol/L (22-29) 01/10/25 BUN 16 mg/dL (9-16) 01/10/25 Creatinine 0.98 mg/dL (0.5-1.4) 01/10/25 Calcium 9.2 mg/dL (8.4-10.2) 01/10/25 PTH Intact 110.5 pg/mL (8.7-77.1) H 01/10/25 Urine Creatinine 139.65 mg/dL 01/10/25 Protein/Creatinin Ratio 0.06 (<0.2) 01/10/25 Assessment & Plan Assessment & Plan (1) Hypertension: Code(s): I10 - Essential (primary) hypertension Category: Medical Qualifiers: Hypertension type: primary hypertension Qualified Code(s): I10 - Essential (primary) hypertension (2) CKD (chronic kidney disease) stage 2, GFR 60-89 ml/min: Code(s): N18.2 - Chronic kidney disease, stage 2 (mild) Category: Medical Plan Noelle has 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 Her renal functions are currently stable. Her blood pressure is at goal. She is not a diabetic. She does not have any low serum potassium, high calcium or uncontrolled thyroid disorders. She avoids nonsteroidal anti-inflammatories. Her brother had ESRD from multiple myeloma. Her immunofixation has been negative. She maintains good hydration. I did not make any medication changes today. Follow-up lab work ordered. Answered all questions. Follow-up appointment given. Orders: Orders Blood Urea Nitrogen 1 Year I10 - Essential (primary) hypertension, N18.2 - Chronic kidney disease, stage 2 (mild) Creatinine 1 Year I10 - Essential (primary) hypertension, N18.2 - Chronic kidney disease, stage 2 (mild) Electrolytes 1 Year I10 - Essential (primary) hypertension, N18.2 - Chronic kidney disease, stage 2 (mild) Calcium 1 Year I10 - Essential (primary) hypertension, N18.2 - Chronic kidney disease, stage 2 (mild) Medications: New amlodipine 2.5 mg PO DAILY 90 tabs 4RF Coding Level of Care Code Est Pt Level 4 (15926) Diagnoses Primary hypertension I10 Hypertension type: primary hypertension CKD (chronic kidney disease) stage 2, GFR 60-89 ml/min N18.2
[2025-01-11 15:34] VITALS: BP 110/60; PULSE 54; O2SAT 94; BMI 22.6
--- OUTSIDE RECORDS SUMMARY | 2025-01-11 17:18 | XMS_ITS | Clinical Summary ---
Author Organization [facility] Address [address] [address] Phone Care Team Providers Care Construction Analyst Name Role Phone Fabricio Cruz MD Primary Care Provider [phone] Allergies No known active allergies Medications alendronate [...] age to complete this topic Insurance [facility]ICARE [facility] MEDICARE [facility] Care Teams Construction Analyst Relationship Specialty Start Date End Date Fabricio Cruz MD [address] [place] [address] PCP - General Internal Medicine 03/27/21
--- OUTSIDE RECORDS SUMMARY | 2025-01-11 17:18 | XMS_ITS | Continuity of Care Document ---
Author Organization [facility] [address] [place] [address] Phone [phone] Care Team Providers Care Handwriting Expert Name Role Phone Fabricio Cruz M.D. Care Team Information Recei luann [phone] Problems Active Problems Provider Date Hypothyroidism Mariana [...] Mariana castillo M.D. Onset: 02/25/2023 Kidney stone Mariana castillo M.D. Onset: 02/25/2023 Bradycardia Mariana castillo [...] Every Day. Mariana Fournier M.D. 03/09/2024 Levothyroxine Bssxxn25koc Tablets Take One Tablet By Mouth Every Day 90tabs Mariana Fournier M.D. 02/28/2023 Rosuvastatin Ocazyeq49uz Tablets Take 1 Tablet By Mouth Once Daily Fabricio Cruz M.D. Alendronate Wephsk29cc Tablets Take 1 Tablet By Mouth Once Weekly Mariana Fournier M.D. Lorazepam0.5mg Tablets Take 1 Tablet By Mouth Once Daily as Needed For Anxiety Unknown Calcium 500/Vitamin D500-3.125mg-mcg Tablets 1 by mouth twice a day Mariana Fournier M.D. Vitamin T633mju (1000 Ut) Capsules 1 by mouth every day 100caps Mariana Fournier M.D. Bupropion Hydrochloride ER (XL)150mg Tablets ER 24HR Take One Tablet By Mouth Every Morning Unknown Escitalopram Dttlpuo56vh Tablets Take One Tablet By Mouth Every Day Unknown Vital Signs Date Vital Result Comment 09/14/2024 8:13am BP Systolic 110 mmHg BP Diastolic 62 mmHg Heart Rate 64 /min Height 60 inches 5'0 Weight 111.38 lb BMI (Body Mass Index) 21.7 kg/m2 Results Test Acquired Date Facility Test Result H/L Range N ote TSH With Reflex To FT4 09/04/2023 [facility] TSH With Reflex To FT4 1.81 uIU/mL (0.4-4.2) 25Oh Vitamin D 09/04/2023 [facility] 25Oh Vitamin D 62.3 NG/ML High (20-50) TSH With Reflex To FT4 05/04/2023 [facility] TSH With Reflex To FT4 2.78 uIU/mL (0.4-4.2) TSH With Reflex To FT4 02/28/2023 [facility] TSH With Reflex To FT4 <pending> TSH With Reflex To FT4 02/25/2023 [facility] TSH With Reflex To FT4 0.32 uIU/mL Low (0.4-4.2) Free T4 02/25/2023 [facility] Free T4 1.76 ng/dL (0.70-1.80 ) Procedures Date Code Description Status 09/04/2023 30738 Collection Of Venous Blood B y Venipuncture Completed 02/25/2023 57245 Collection Of Venous Blood B y Venipuncture [...]
--- OUTSIDE RECORDS SUMMARY | 2025-01-11 17:18 | XMS_ITS | Clinical Summary ---
Author Organization [facility] Address [address] [place] [address] Care Team Providers Care Machine Pan Greaser Name Role Phone Fabricio Cruz MD Primary [...] age to complete this topic Care Teams Machine Pan Greaser Relationship Specialty Start Date End Date Fabricio Cruz MD [address] [facility] [address] [place] [address] PCP - General Internal Medicine 03/26/20
--- OUTSIDE RECORDS SUMMARY | 2025-01-11 17:18 | XMS_ITS | Clinical Summary ---
Author Organization [facility] Address [address] [place] [address] Care Team Providers Care Mixer Blender Name Role Phone Fabricio Cruz MD Primary Care Provider [phone] Allergies Active Allergy Reactions Criticality Noted Date [...] Team Description 01/02/2025 Telephone Gastroenterology - [address] [phone] Danae Acosta [place] 12/30/2024 9:51 AM EDT Anesthesia Event [facility] Endoscopy [address] [place] [phone] Lupillo Davila MD 12/30/2024 8:26 AM EDT - 12/30/2024 11:59 PM EDT Hospital Encounter [facility] Endoscopy [address] [place] [phone] Marybel Aden MD Weiss, Ashley, CRNA Colon cancer screening Discharge Disposition: Home or Self Care 10/31/2024 Telephone Gastroenterology - [address] [phone] Marybel Aden MD from Last 3 Months Immunizations Name Administration Dates Next Due Moprise/Biosensia SARS-CoV-2 COVID -19, vector-nr, rS-Ad26, preservative free [...] Description 01/16/2025 3:45 PM EDT Office Visit [facility] Hematology Oncology [address] [place] [phone] Camden Rodriges MD [address] [place] [address] Health Maintenance Due Date Last [...] Maintenance Results * COLONOSCOPY Anesthesia - MAC; [facility] ENDOSCOPY (12/30/2024 10:13 AM EDT) Only the [...] pathology results. Narrative 12/30/2024 10:14 AM EDT [facility] GI Patient Name: Monica Pack Procedure [...] Procedure Code(s): ? --- Professional --- ? 18452, Colonoscopy, flexible; with removal of ? tumor(s), polyp(s), or other lesion(s) by snare ? technique Diagnosis Code(s): ? --- Professional --- ? 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 D12.3, Benign neoplasm of transverse colon (hepatic ? flexure or splenic flexure) CPT copyright 2020 [employer]. All rights reserved. The codes documented in this report are preliminary and upon display designer outside review may be revised to meet current compliance requirements. Marybel Aden MD 12/30/2024 10:14:42 AM This report has been signed electronically.Marybel Aden MD Number of Addenda: 0 Note Initiated On: 12/30/2024 9:54 AM Scope In: Scope Out: ? Endoscopy Department at [facility] - [address] [place] [address], ? [place] [address] Procedure Note Marybel Aden MD - 12/30/2024 [facility] GI Patient Name: Monica Pack Procedure [...] reduce spontaneously). Procedure Code(s): --- Professional --- 24743, Colonoscopy, flexible; with removal of tumor(s), polyp(s), or other lesion(s) by snare technique Diagnosis Code(s): --- Professional --- Z85.038, Personal history of other malignantneoplasm of large intestine D12.3, Benign neoplasm of transverse colon (hepatic flexure or splenic flexure) CPT copyright 2020 [employer]. All rights reserved. The codes documented in this report are preliminary and upon display designer outside reviewmay be revised to meet current compliance requirements. Marybel Aden MD 12/30/2024 10:14:42 AM This report has been signed electronically.Marybel Aden MD Number of Addenda: 0 Note Initiated On: 12/30/2024 9:54 AM Scope In: Scope Out: Endoscopy Department at [facility] - [address] [place] [phone] IMPRESSION: - The examined portion of the [...] polyp: Tubular adenoma. 01/02/2025 11:05 AM EDT [facility] Gross Description A. Large Intestine, Transverse Colon, polyp: Labeled transvers colon . Received in formalin, is an approximately 0.5 cm in greatest diameter soft to rubbery, pickard-pink tissue fragment, which is inked green at the base, wrapped in paper and submitted in toto in one cassette, one piece, multiple levels. dvb/DG 01/02/2025 11:05 AM EDT [facility] Disclaimer Unless otherwise specified, all tissue is 10% NB formalin fixed and paraffin embedded. 01/02/2025 11:05 AM EDT [facility] Tissue Transverse colon structure / Unknown 12/30/2024 10:07 AM EDT 12/30/2024 12:42 PM EDT us Marybel Aden MD LAB PATHOLOGY ORDERABLES Final Result [facility] [address] [place] [address], * [facility] DEXA AXIAL SKELETON (08/01/2024 8:26 AM EDT) Anatomical Region Laterality Modality Mammography 08/01/2024 7:26 AM EDT Narrative 08/01/2024 8:26 AM EDT [facility] Diagnostic Imaging Department [address] [place] [address] Patient: ??MONICA PACK ?/Age/Sex: 1950 - Unit#: ??[id number] ? Location/Status: ??SPDIMAM/REG CLI ? Mnemonic/Ordering Site: [...] probability of hip fracture of 4.7%. Code 81005 Dictating Physician: ??CIERRA MARTÍNEZ MD Electronically Signed by: ??CIERRA MARTÍNEZ MD Dic Date/Time: ??08/01/24824 Sign date/Time: ??08/01/24825 Procedure Note Cierra Martínez MD - 08/06/2024 [facility] Diagnostic Imaging Department [address] [place] [address] Patient: MONICA PACK /Age/Sex: 1950 - 74 - F Unit#: [id number] Location/Status: SPDIMAM/REG CLI [facility] Ordering Physician: JUS GOODEN MD [facility] Dexa Axial Skeleton - 08/01/24801 Report Status:Signed [...] density of the femurs bilaterally is 0.782 gm/sp2cploo is 78% of that of young normals [...] probability of hip fracture of 4.7%. 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
== END 2025-01-11 16:01 | disposition home or self-care (01) ==
LOC: HO.HKA 15:20
PROVIDERS: PCP Internal Medicine; Visit Provider Internal Medicine Nephrology
DX: I12.9 Hypertensive chronic kidney disease with stage 1 through stage 4 chronic kidney disease, or unspecified chronic kidney disease (principal); N18.2 Chronic kidney disease, stage 2 (mild)
CPT/HCPCS: 99214

== ENCOUNTER → 2025-01-11 15:20 | Outpatient (BNVA) | payer MEDICARE, SELFPAY | PROVIDERS: PCP Internal Medicine; Visit Provider Internal Medicine Nephrology | DX: I12.9 Hypertensive chronic kidney disease with stage 1 through stage 4 chronic kidney disease, or unspecified chronic kidney disease (principal); N18.2 Chronic kidney disease, stage 2 (mild) | CPT/HCPCS: 99212 ==